=== PATIENT | male | born 1995 | race Two or more races ===

== ENCOUNTER 2021-09-10 11:14 | Emergency (ER) | payer OTHER ==
[2021-09-10 11:34] VITALS: BP 148/101; PULSE 70; TEMP 98.2; BMI 43.1
== END 2021-09-10 12:34 | disposition home or self-care (01) ==
LOC: JERFT 11:14 → JER 11:14 → JERFT 12:34
DX: K62.5 Hemorrhage of anus and rectum (principal); R51.9 Headache, unspecified; G89.29 Other chronic pain
CPT/HCPCS: 82962; 99283-25

== ENCOUNTER 2024-10-11 16:25 | Emergency (ER) | payer OTHER ==
[2024-10-11 16:32] VITALS: BP 124/64; PULSE 77; RESP 18; TEMP 98.3; BMI 44.7
[2024-10-11] MEDS ORDERED: LIDOCAINE 4% PATCH TP ONE (17:38)
[2024-10-11] MEDS ORDERED: ACETAMINOPHEN 500 MG TABLET (FP) ONE (17:38)
[2024-10-11] MEDS ORDERED: diazePAM 2 MG TABLET ONE (17:38)
[2024-10-11] MEDS: ACETAMINOPHEN 500 MG TABLET (FP) PO ONE (17:43)
[2024-10-11] MEDS: LIDOCAINE 4% PATCH TP ONE (17:43)
[2024-10-11] MEDS: diazePAM 2 MG TABLET PO ONE (17:44)
[2024-10-11] MEDS ORDERED: LIDOCAINE PATCH REMOVAL MC SCH (22:00)
== END 2024-10-11 20:06 | disposition home or self-care (01) ==
LOC: JERFT 16:25
DX: M54.50 Low back pain, unspecified (principal)
CPT/HCPCS: 72131-TC; 73560-TC-LT-FY; 99284-25